=== PATIENT | female | born 2000 | race American Indian/Alaskan Native ===

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

== ENCOUNTER 2020-04-09 16:52 | Outpatient (CLI) | payer MEDICAID ==
[2020-04-09] MEDS ORDERED: LACTATED RINGERS 500 ML IV ONE (17:50)
[2020-04-09 18:03] VITALS: BP 121/58
--- NOTE | 2020-04-09 18:15 | Event Note ---
Date: 04/09/20 pt reports + FM at this time. FHT reactive, no ctx noted. plan to d/c home with routine f/u in office.
== END 2020-04-09 18:45 | disposition home or self-care (01) ==
LOC: LD 16:52 → TRG 16:52
PROVIDERS: ATTEND Obstetrics & Gynecology
DX: O47.1 False labor at or after 37 completed weeks of gestation (principal); Z3A.36 36 weeks gestation of pregnancy
CPT/HCPCS: 59025

== ENCOUNTER 2020-04-30 16:19 | Inpatient (IN) | payer MEDICAID ==
[2020-04-30] MEDS ORDERED: fentaNYL 100 MCG/2 ML INJ IV PRN (17:36)
[2020-04-30] MEDS ORDERED: TERBUTALINE 1 MG/1 ML INJ SUB-Q PRN (17:36)
[2020-04-30] MEDS ORDERED: LIDOCAINE (2%) 20 MG/1 ML VIAL 20 ML MDV INFILTRATI ONE (17:36)
[2020-04-30] MEDS ORDERED: NalbUPHINE 10 MG/1 ML INJ IV PRN (17:36)
[2020-04-30] MEDS ORDERED: MINERAL OIL 30 ML ORAL LIQD PO PRN (17:36)
[2020-04-30] MEDS ORDERED: ePHEDrine SULFATE 50 MG/1 ML INJ IV PRN (17:36)
[2020-04-30] MEDS ORDERED: BUTORPHANOL 2 MG/1 ML INJ IV PRN (17:36)
--- NOTE | 2020-04-30 17:36 | History and Physical Report ---
History of Present Illness Date of examination: 04/30/20 Date of admission: 04/30/20 16:39 Chief complaint: IOL @ 39+4 for IUGR History of present illness: EDC Confirmation: 05/03/2020 Past History : 2 Term Births: 1 Premature Births: 0 Living Children: 1 Para: 1 Mult. Births: 0 Prev : 0 Prev. attempt? 0 Aborta: 0 Elect. Ab: 0 Spont. Ab: 0 Ectopics: 0 # 1 Delivery date: 01/01/2019 Weeks Gestation: 40 Delivery type: Vaginal Anesthesia type: epidural Delivery location: [facility] Infant Sex: female weight: 7.25 Comments: none Past Medical History: Reviewed history from 05/30/2018 and no changes required: Negative Past Medical History Past Surgical History: Reviewed history from 05/30/2018 and no changes required: left eye - cataract removal x 2 Past Medical History Social Hx: School - 12th grade no ETOH/drugs/smoking Infection History Hx of STD: none Personal hx. of genital herpes: no Varicella/Chicken Pox Status: Immunized Genetic History Congenital Heart Defect: Mom: no Dad: no Sarah Disease: Mom: no Dad: no Thalassemia Mom: no Dad: no Neural Tube Defect Mom: no Dad: no Down's Syndrome Mom: no Dad: no Sb-Sachs Mom: no Dad: no Sickle Cell Disease/Trait Mom: no Dad: no Hemophilia Mom: no Dad: no Muscular Dystrophy Mom: no Dad: no Cystic Fibrosis Mom: no Dad: no [place] Chorea Mom: no Dad: no Mental Retardation Mom: no Dad: no Fragile X Mom: no Dad: no Other Genetic/Chromosomal Disorder Mom: no Dad: no Child w/other defect Mom: no Dad: no Enviromental Exposures Xray Exposure: no Medication, drug, or alcohol use since LMP: no Chemical/Other Exposure: no Exposure to Cat Liter: no Hx of Parvovirus (Fifth Disease): no Occupational Exposure to Children: none Active Medications (reviewed today): FLUCONAZOLE 150 MG ORAL TABLET (FLUCONAZOLE) 1 tab po today repeat in one week Current Allergies (reviewed today): No known allergies Past History Past Medical History: other (s) Past Surgical History: other (see HPI) DIETARY SERVICES DIRECTOR History: other (see HPI) - Obstetrical History Expected Date of Delivery: 05/03/20 Actual Gestation: 39 Week(s) 5 Day(s) : 2 Para: 1 Hx # Term Pregnancies: 1 Number of Pregnancies: 0 Spontaneous Abortions: 0 Induced : 0 Number of Living Children: 1 Medications and Allergies Allergies Allergy/AdvReac Type Severity Reaction Status Date / Time No Known Allergies Allergy Verified 01/01/19 10:06 Home Medications Medication Instructions Recorded Confirmed Last Taken Type Vit-Fe Fumar-FA [ 1 tab PO QDAY 01/01/19 05/01/20 12/31/18 07:00 History Vitamin] 1 Oseltamivir [Tamiflu] 75 mg PO BID #10 cap 11/10/19 05/01/20 Unknown Rx Review of Systems All systems: negative - Vital Signs Vital signs: Vital Signs Pulse BP 93 H 115/59 04/30/20 17:01 04/30/20 17:01 Temp Pulse Resp BP Pulse Ox 98.3 F 92 H 20 115/59 99 04/30/20 17:14 04/30/20 17:31 04/30/20 17:14 04/30/20 17:14 04/30/20 17:31 - Physical Exam Breasts: Positive: normal Cardiovascular: Regular rate Lungs: Positive: Normal air movement Abdomen: Positive: normal appearance, soft Genitourinary (Female): Positive: normal external genitalia, normal perenium Vulva: both: normal Vagina: Positive: normal moisture Uterus: Positive: normal size, normal contour Anus/Rectum: Positive: normal perianal skin Extremities: Positive: normal Deep Tendon Reflex Grade: Normal +2 - Obstetrical FHR: auscultation normal Cervical Dilatation: 4.5 (BBOW) Cervical Effacement Percentage: 90 station: -2 Results Result Diagrams: 04/30/20 18:00 All other labs normal. Assessment and Plan 19y/o @ 39+4 weeks admitted for IOL, GBS NEG. complicated by IUGR - Patient Problems (1) 39 weeks gestation of Current Visit: Yes Status: Acute (2) IUGR (intrauterine growth restriction) Current Visit: Yes Status: Acute Plan to address problem: IOL cont efm and toco
[2020-04-30] MEDS ORDERED: LACTATED RINGERS 1,000 ML ONE (17:38)
[2020-04-30] MEDS ORDERED: LACTATED RINGERS 1,000 ML IV SCH (18:00)
[2020-04-30] MEDS ORDERED: OXYTOCIN 20 UNIT/1000ML DRIP 20 UNITS/1,000 ML BAG IV SCH (18:00)
[2020-04-30] MEDS ORDERED: OXYTOCIN DRIP 30 UNITS/500 ML BAG IV SCH (18:00)
[2020-04-30 18:28] LABS: Hemoglobin 10.2 gm/dl (10.1-14.3); Mean Corpuscular HGB Conc 34 % (30-34); Mean Corpuscular Volume 87 fl (79-97); Platelet Count 181 K/mm3 (140-440); Red Blood Count 3.44 M/mm3 (3.65-5.03); Red Cell Distribution Width 14.7 % (13.2-15.2)
--- NOTE | 2020-04-30 22:05 | Procedure Note ---
OB Delivery Note - Delivery Date of Delivery: 04/30/20 Surgeon: MINA COHEN Estimated blood loss: other (400cc) - Vaginal Delivery position: OA Intrapartum events: precipitous labor- <3hr (Nurse delivery I arrived after delivery without any prior notice from the nurse) Delivery induction: none Delivery monitor: external FHT, external uterine Route of delivery: Delivery placenta: spontaneous Episiotomy: none Delivery laceration: none Anesthesia: none Delivery comments: Report given by nurse patient on admission was 4 cm and desired epidural. Nurse reports that the patient start IV bolus for epidural then complaining of pressure and had a spontaneous rupture membranes was completely dilated and delivered quickly afterwards. Events happen quickly even before the nurse could call me to come for delivery. - Infant A at 1 minute: 8 at 5 minutes: 9 Gender: Female (6 pounds 10 ounces)
[2020-04-30] MEDS ORDERED: ACETAMINOPHEN 325 MG TAB PO PRN (23:55)
[2020-04-30] MEDS ORDERED: diphenhydrAMINE 25 MG CAP PO PRN (23:55)
[2020-04-30] MEDS ORDERED: WITCH HAZEL/ GLYCERIN PAD TP PRN (23:55)
[2020-04-30] MEDS ORDERED: MAGNESIUM HYDROXIDE (MOM) ORAL LIQD UDC PO PRN (23:55)
[2020-04-30] MEDS ORDERED: LANOLIN/ZINC/DIMETHICONE (LANSINOH) 7 GM TP PRN (23:55)
[2020-04-30] MEDS ORDERED: oxyCODONE /ACETAMINOPHEN 5-325MG TAB PO PRN (23:55)
[2020-04-30] MEDS ORDERED: PROMETHAZINE 25 MG TAB PO PRN (23:55)
[2020-05-01] MEDS: IBUPROFEN 600 MG TAB PO SCH ×4 (00:23→23:05)
[2020-05-01] MEDS ORDERED: DIPHtheria,PERTUSSIS(ACELL),TETANUS VACCINE/PF 0.5 ML VIAL IM ONE (06:00)
--- NOTE | 2020-05-01 07:28 | Progress Note ---
Assessment and Plan VSSAF, H&H to be drawn around 1000. patient resting w/o complaints. - Patient Problems (1) Normal spontaneous vaginal delivery Current Visit: No Status: Acute Plan to address problem: continue course anticipate d/c home tomorrow Subjective - Subjective Date of service: 05/01/20 Principal diagnosis: day 1 <12hrs post Interval history: EDC Confirmation: 05/03/2020 Past History : 2 Term Births: 1 Premature Births: 0 Living Children: 1 Para: 1 Mult. Births: 0 Prev : 0 Prev. attempt? 0 Aborta: 0 Elect. Ab: 0 Spont. Ab: 0 Ectopics: 0 # 1 Delivery date: 01/01/2019 Weeks Gestation: 40 Delivery type: Vaginal Anesthesia type: epidural Delivery location: [facility], [place] Infant Sex: female weight: 7.25 Comments: none Past Medical History: Reviewed history from 05/30/2018 and no changes required: Negative Past Medical History Past Surgical History: Reviewed history from 05/30/2018 and no changes required: left eye - cataract removal x 2 Past Medical History Social Hx: School - 12th grade no ETOH/drugs/smoking Infection History Hx of STD: none Personal hx. of genital herpes: no Varicella/Chicken Pox Status: Immunized Genetic History Congenital Heart Defect: Mom: no Dad: no Sarah Disease: Mom: no Dad: no Thalassemia Mom: no Dad: no Neural Tube Defect Mom: no Dad: no Down's Syndrome Mom: no Dad: no Sb-Sachs Mom: no Dad: no Sickle Cell Disease/Trait Mom: no Dad: no Hemophilia Mom: no Dad: no Muscular Dystrophy Mom: no Dad: no Cystic Fibrosis Mom: no Dad: no [place] Chorea Mom: no Dad: no Mental Retardation Mom: no Dad: no Fragile X Mom: no Dad: no Other Genetic/Chromosomal Disorder Mom: no Dad: no Child w/other defect Mom: no Dad: no Enviromental Exposures Xray Exposure: no Medication, drug, or alcohol use since LMP: no Chemical/Other Exposure: no Exposure to Cat Liter: no Hx of Parvovirus (Fifth Disease): no Occupational Exposure to Children: none Active Medications (reviewed today): FLUCONAZOLE 150 MG ORAL TABLET (FLUCONAZOLE) 1 tab po today repeat in one week Current Allergies (reviewed today): No known allergies Patient reports: appetite normal, voiding normally, pain well controlled, ambulating normally, no dizzy ambulation, no nauseated : doing well, bottle feeding Objective - Vital Signs Latest vital signs: Vital Signs Temp Pulse Resp BP BP Pulse Ox 04/30/20 23:25 98.6 F 85 20 107/50 98 04/30/20 22:57 91 H 100 04/30/20 22:52 90 99 04/30/20 22:47 92 H 99 04/30/20 22:42 100 H 99 04/30/20 22:37 95 H 100 04/30/20 22:32 90 99 04/30/20 22:27 106 H 99 04/30/20 22:22 96 H 100 04/30/20 22:17 97 H 100 04/30/20 22:16 87 92 04/30/20 22:12 94 H 100 04/30/20 22:07 82 99 04/30/20 22:02 85 94 04/30/20 21:57 105 H 100 04/30/20 21:52 81 100 04/30/20 21:47 88 100 04/30/20 21:42 82 100 04/30/20 21:37 95 H 100 04/30/20 21:32 93 H 99 04/30/20 21:27 96 H 100 04/30/20 21:22 95 H 98 04/30/20 21:20 107 H 93 04/30/20 21:17 96 H 99 04/30/20 21:15 98.2 F 04/30/20 21:12 79 100 04/30/20 21:07 86 99 04/30/20 21:02 78 115/77 100 04/30/20 20:41 113 H 100 04/30/20 20:36 99 H 100 04/30/20 20:31 93 H 100 04/30/20 20:26 100 H 99 04/30/20 20:21 100 H 99 04/30/20 20:18 97 H 85 04/30/20 20:16 97 H 100 04/30/20 20:11 103 H 99 04/30/20 20:06 95 H 100 04/30/20 20:01 100 H 100 04/30/20 19:56 90 100 04/30/20 19:51 86 98 04/30/20 19:46 93 H 93 04/30/20 19:43 87 84 04/30/20 19:41 89 100 04/30/20 19:36 96 H 100 04/30/20 19:32 88 93 04/30/20 19:31 86 100 04/30/20 19:26 103 H 96 04/30/20 19:21 91 H 100 04/30/20 19:16 90 99 04/30/20 19:11 92 H 99 04/30/20 19:09 98.6 F 92 H 16 115/59 99 04/30/20 19:06 88 98 04/30/20 19:01 96 H 97 04/30/20 18:37 90 93 04/30/20 18:36 94 H 96 04/30/20 18:31 88 91 04/30/20 18:29 94 H 88 04/30/20 18:26 104 H 98 04/30/20 18:21 101 H 99 04/30/20 18:16 92 H 99 04/30/20 18:11 86 97 04/30/20 18:06 92 H 100 04/30/20 18:01 96 H 98 04/30/20 17:56 89 99 04/30/20 17:51 96 H 98 04/30/20 17:46 89 98 04/30/20 17:41 94 H 99 04/30/20 17:36 89 98 04/30/20 17:31 92 H 99 04/30/20 17:26 103 H 98 04/30/20 17:21 94 H 98 04/30/20 17:16 92 H 97 04/30/20 17:14 98.3 F 97 H 20 115/59 98 04/30/20 17:11 100 H 98 04/30/20 17:01 93 H 115/59 Intake and Output 04/30/20 04/30/20 05/01/20 15:59 23:59 07:59 Intake Total 240 Output Total 1000 Balance -760 Intake: Intake, Free Water 240 Output: Urine 1000 Void 1000 Other: Total, Output Amount 400 # Voids Void 1 Weight 65.317 kg - Exam Breasts: Present: normal Cardiovascular: Present: Regular rate Lungs: Present: Clear to auscultation, Normal air movement Abdomen: Present: normal appearance, soft Vulva: both: normal Uterus: Present: normal, firm, fundal height above umbilicus Extremities: Present: normal Deep Tendon Reflex Grade: Normal +2 - Labs Labs: Abnormal lab results 04/30/20 Range/Units 18:00 WBC 12.3 H (4.5-11.0) K/mm3 RBC 3.44 L (3.65-5.03) M/mm3 Hct 30.0 L (30.3-42.9) %
[2020-05-01] MEDS: PRENATAL VIT27-FE FUMARATE-FOLIC ACID VIT TAB PO SCH (10:44)
[2020-05-01] MEDS: DOCUSATE SODIUM 100 MG CAP PO SCH ×2 (10:44→21:19)
[2020-05-01 12:51] LABS: Hematocrit 26.4 % (30.3-42.9); Hemoglobin 8.6 gm/dl (10.1-14.3)
[2020-05-02] MEDS: IBUPROFEN 600 MG TAB PO SCH ×2 (05:26→12:30)
--- NOTE | 2020-05-02 08:20 | Discharge Summary ---
Providers - Providers Date of Admission: 04/30/20 16:39 Date of discharge: 05/02/20 (Pt agrees with D/C home today) Attending physician: MINA COHEN 04/30/20 23:55 Consult to [employer] Lead [CONS] Routine Reason For Exam: assistance with , SNS Primary care physician: MINA COHEN Hospitalization Reason for admission: IUP at term, other (IOL for IUGR) Delivery: Episiotomy: none Laceration: none Other procedures: none complications: none Discharge diagnosis: IUP at term delivered Jelm baby: female Pertinent studies: Post-delivery H/H 07/10. Drop d/t blood loss during delivery. Hospital course: 19 y.o. female, , IOL for IUGR at 39 weeks. Uncomplicated and PP co urse. Condition at discharge: Good Disposition: DC-01 TO HOME OR SELFCARE - Discharge Diagnoses (1) Anemia Status: Acute Comment: Post delivery H/H 07/10. Drop d/t blood loss during delivery. Pt reports fatigue. Ambulating without difficulty. Denies blurry vision, chest pain, SOB, lightheadedness, and dizziness. Rx home with iron supplementation. (2) Normal spontaneous vaginal delivery Status: Acute Comment: Pt sitting in bed active . No visible s/s of distress. Denies pain. VSSAF. Voiding without difficulty. Fundus firm at umbilicus. Scant vaginal bleeding. Desires IUD for PP contraception. P: D/C home today with PO iron supplementation. F/U in 4 weeks for PPV. Plan - Provider Discharge Summary Activity: no sex for 6 weeks, no heavy lifting 4 weeks, no strenuous exercise Diet: routine Instructions: routine Additional instructions: [] Smoking cessation referral if applicable(refer to patient education folder for contact #) [] Refer to [facility] Booklet Call your doctor immediately for: * Fever > 100.5 * Heavy vaginal bleeding ( >1 pad per hour) * Severe persistent headache * Shortness of breath * Reddened, hot, painful area to leg or breast * Drainage or odor from incision. * Keep incision clean and dry at all times and follow doctor's instructions regarding bathing/showering - Follow up plan Follow up: MINA COHEN MD [Primary Care Provider] - 7 Days (Congradulations! Please contact our office at [phone] to schedule your 4-week visit. Feel free to call us with any questions or concerns. )
[2020-05-02] MEDS: DOCUSATE SODIUM 100 MG CAP PO SCH (10:25)
[2020-05-02] MEDS: PRENATAL VIT27-FE FUMARATE-FOLIC ACID VIT TAB PO SCH (10:25)
[2020-05-02 14:16] VITALS: BP 113/47
== END 2020-05-02 14:40 | disposition home or self-care (01) | DRG 775 ==
LOC: TRG 16:19 → APU 16:20 → TRG 16:38 → LD 16:39 → OB 23:25
PROVIDERS: ADMIT Obstetrics & Gynecology; ATTEND Obstetrics & Gynecology
PROC: 10E0XZZ Delivery of Products of Conception, External Approach (ICD-10-PCS; principal; 2020-04-30)
PROC: 3E0R3BZ Introduction of Anesthetic Agent into Spinal Canal, Percutaneous Approach (ICD-10-PCS; 2020-04-30)
PROC: 3E0R33Z Introduction of Anti-inflammatory into Spinal Canal, Percutaneous Approach (ICD-10-PCS; 2020-04-30)
DX: O62.3 Precipitate labor (principal); O36.5930 Maternal care for other known or suspected poor fetal growth, third trimester, not applicable or unspecified; Z3A.39 39 weeks gestation of pregnancy; Z37.0 Single live birth; O99.02 Anemia complicating childbirth
CPT/HCPCS: 36415; 85014; 85018; 85027; 86850; 86900; 86901; 90471; 90715; G0378; J2590; J7120